=== PATIENT | male | born 1985 | race American Indian/Alaskan Native ===

== ENCOUNTER 2018-04-20 10:31 | Outpatient (CLI) | payer OTHER ==
--- NOTE | 2018-04-20 13:15 | XRay Report ---
RIGHT HIP, 2 views: History: Right hip pain. The bony architecture is intact without evidence of fracture or dislocation. No significant soft tissue abnormality is seen. IMPRESSION: Normal right hip.
== END 2018-04-20 10:32 | disposition home or self-care (01) ==
LOC: XRAY 10:31
PROVIDERS: ATTEND Internal Medicine
DX: M19.90 Unspecified osteoarthritis, unspecified site (principal); M25.551 Pain in right hip; R42 Dizziness and giddiness; H93.19 Tinnitus, unspecified ear; R51 Headache; F41.9 Anxiety disorder, unspecified; F43.10 Post-traumatic stress disorder, unspecified; X58.XXXA Exposure to other specified factors, initial encounter; Y93.89 Activity, other specified; Y92.89 Other specified places as the place of occurrence of the external cause; Y99.8 Other external cause status